=== PATIENT | male | born 2000 | race Caucasian/White ===

== ENCOUNTER → 2018-04-10 14:56 | Outpatient (CLI) | payer OTHER, SELFPAY ==
[2018-04-10 11:56] VITALS: BMI 24.0
== END ==
PROVIDERS: Family Provider Family Medicine; PCP Family Medicine; Visit Provider Physician Assistant Medical
DX: J02.9 Acute pharyngitis, unspecified (principal)
CPT/HCPCS: 87081

== ENCOUNTER → 2018-10-12 09:08 | Outpatient (CLI) | payer OTHER, SELFPAY ==
[2018-04-10 11:56] VITALS: BMI 24.0
[2018-10-12 09:12] LABS: Lyme Ab Screen Interpretation REF LAB
[2018-10-15 12:31] LABS: Lyme Scn Total Ab w/Rflx <0.91 ISR (0.00-0.90)
== END ==
PROVIDERS: Family Medicine; Family Provider Family Medicine; PCP Family Medicine; Referring Provider Family Medicine; Visit Provider Family Medicine
DX: A69.20 Lyme disease, unspecified (principal)
CPT/HCPCS: 36415; 86618